=== PATIENT | female | born 1960 | race African-American/Black ===

== ENCOUNTER 2017-04-06 22:32 | Emergency (ER) | payer MEDICAID ==
[~2017-04-06] VITALS: Ht 165.1 cm; Wt 64.9 kg
[~2017-04-06 22:32] MED LIST: AMOXICILLIN500 MG ORAL; CILOXAN 0.3% O1 DROP BOTH EYES; CLINDAMYCIN HC300 MG ORAL; IBUPROFEN600 MG ORAL; IBUPROFEN600 MG PO; MACROBID100 MG ORAL; NKM; NORCO 5-325 TA1 EAC1 ORAL; PENICILLIN V P500 MG ORAL; ROBAXIN-750750 MG PO; VICODIN 5-5001 EACH PO
[2017-04-06 22:49] VITALS: BP 106/69
[2017-04-06] MEDS ORDERED: Ketorolac 60mg Inj IM ONE (23:15)
--- NOTE | 2017-04-06 23:15 | Emergency Room Report ---
History of Present Illness General Chief Complaint: Upper Extremity Injury Source: Patient Present Illness HPI Patient is a 56-year-old female presented after increased right wrist pain after fall. The patient reported falling 3 hours prior to arrival right side . She had prior history of wrist pain. Patient reported having some kind of a tear. She denies loss of consciousness or other locations of pain. Allergies: Coded Allergies: SULFA(SULFONAMIDE ANTIBIOTICS) (Verified Allergy, Mild, Hives, 03/29/12) Patient History Past Medical History: see triage record Reviewed Nursing Documentation: PMH: Agreed, PSxH: Agreed Nursing Documentation-PMH Past Medical History: No Stated History Hx Hypertension: No Hx Diabetes: No Hx Gastrointestinal Problems: No - Hysterectomy in 2001 Review of Systems All Other Systems: negative except mentioned in HPI Physical Exam Vital Signs Date Time Temp Pulse Resp B/P (MAP) Pulse Ox O2 Delivery O2 Flow Rate FiO2 04/06/17 22:39 97.9 64 16 106/69 98 Room Air General Appearance: well appearing, no apparent distress, alert, GCS 15 Head: normocephalic, atraumatic ENT: hearing grossly normal, normal voice Neck: full range of motion, supple Respiratory: no respiratory distress, speaking full sentences Cardiovascular #1: normal inspection, normal peripheral pulses, regular rate, rhythm Gastrointestinal: normal inspection Musculoskeletal: decreased range of mation - tenderness to right snuffbox, distal wrist swelling Neurologic: normal gait Psychiatric: mood/affect normal Skin: no rash Medical Decision Making Diagnostic Impression: Primary Impression: Distal radius fracture, right Additional Impression: Scaphoid fracture ER Course Patient presented for wrist pain. Differential diagnosis included fracture, dislocation, scapphoid fracture, sprain, ganglion cyst, septic joint , arthritis, abscess among others. Wrist Xray was ordered. X-ray imaging of the wrist 3 views interpreted by me showed nondisplaced fracture of the right wrist. The patient was noted to have pain consistent with scaphoid fracture. She was placed in a thumb spica splint. The patient is advised to follow up with primary care doctor in 1-2 days for orthopedic referral. Patient is advised to return if any worsening condition or if any changes in status that are concerning. This report is dictated with [employer] [email or web address] developer software which may occasionally lead to discrepancies related to use of this software. Last Vital Signs Date Time Temp Pulse Resp B/P (MAP) Pulse Ox O2 Delivery O2 Flow Rate FiO2 04/06/17 22:49 97.9 60 16 106/69 98 Room Air Status: improved Disposition: HOME, SELF-CARE Condition: Stable Scripts Ibuprofen* (MOTRIN*) 600 Mg Tablet 600 MG ORAL Q8H Y for For Pain, #30 TAB 0 Refills Prov: Humberto Downey 04/06/17 Hydrocodone Bit/Acetaminophen 5-325* (NORCO 5-325 TABLET*) 1 Each Tablet 1 TAB ORAL Q4H Y for For Pain, #30 TAB Prov: Humberto Downey 04/06/17 Humberto Downey Apr 06, 2017 23:15
[2017-04-06] MEDS ORDERED: NORCO 5-325 TA1 EAC1 ORAL (23:24)
[2017-04-06] MEDS ORDERED: IBUPROFEN600 MG ORAL (23:24)
--- NOTE | 2017-04-07 10:40 | Diagnostic Imaging Report ---
Clinical Indication:Pain status post fall Technique: 3 views of the right wrist Comparison: None Findings: There is a transverse fracture of the distal radius. This is nondisplaced.. No associated ulnar styloid fracture. There is very questionable lucency through the scaphoid waist seen on both the AP and oblique views, possibly artifactual but poorly could represent a nondisplaced fracture line. No dislocations. Joint spaces are preserved Impression: Positive for distal radial fracture Possible scaphoid waist fracture This agrees with the findings recorded by the ER physician in the electronic medical record
== END 2017-04-06 23:50 | disposition home or self-care (01) ==
LOC: EMR 23:25
DX: S52.591A Other fractures of lower end of right radius, initial encounter for closed fracture (principal); S62.001A Unspecified fracture of navicular [scaphoid] bone of right wrist, initial encounter for closed fracture; W19.XXXA Unspecified fall, initial encounter; Y92.9 Unspecified place or not applicable; Z88.2 Allergy status to sulfonamides
CPT/HCPCS: 96372; 99283

== ENCOUNTER 2017-12-28 08:35 | Emergency (ER) | payer MEDICAID ==
[~2017-12-28] VITALS: Ht 165.1 cm; Wt 64.4 kg
--- NOTE | 2017-12-28 09:13 | Emergency Room Report ---
History of Present Illness General Chief Complaint: Pain Source: Patient Present Illness HPI Patient presents to the emergency department today complaining of left rib pain. Patient states that she was trying to change bunkbed. And accidentally hurt her left side of the chest yesterday. She has had pain since then. The pain is worse with deep inspiration and palpation. She denies any other injuries. Denies any shortness of breath nausea vomiting diarrhea or chills. No other complaints are noted. Symptoms noted to be moderate.No other modifying factors. No other associated signs and symptoms. No other complaints were noted. Allergies: Coded Allergies: SULFA(SULFONAMIDE ANTIBIOTICS) (Verified Allergy, Mild, Hives, 03/29/12) Patient History Past Medical History: none Past Surgical History: none Pertinent Family History: none Social History: Denies: smoking, alcohol use, drug use Last Menstrual Period: hysterectomy 16 yrs ago Reviewed Nursing Documentation: PMH: Agreed; PSxH: Agreed Nursing Documentation-PMH Past Medical History: No History, Except For Hx Hypertension: No Hx Diabetes: No Hx Gastrointestinal Problems: No - Hysterectomy in 2001 Review of Systems All Other Systems: negative except mentioned in HPI Physical Exam Vital Signs Date Time Temp Pulse Resp B/P (MAP) Pulse Ox O2 Delivery O2 Flow Rate FiO2 12/28/17 08:42 98.3 61 18 108/63 96 Room Air 98.2 Sp02 EP Interpretation: reviewed, normal General Appearance: normal inspection, well appearing, no apparent distress, alert Head: atraumatic Eyes: bilateral eye normal inspection ENT: hearing grossly normal, normal voice Neck: full range of motion, supple Respiratory: normal inspection, lungs clear, normal breath sounds, no respiratory distress, no retraction, no wheezing, other - Tender left anterior chest Cardiovascular #1: regular rate, rhythm, no edema Gastrointestinal: normal inspection, normal bowel sounds, non tender, soft, no guarding, no hernia Genitourinary: no CVA tenderness Musculoskeletal: normal inspection, back normal, normal range of motion Neurologic: normal inspection, alert, responsive, speech normal Psychiatric: normal inspection, judgement/insight normal, mood/affect normal Skin: normal inspection, normal color, no rash Medical Decision Making Diagnostic Impression: Primary Impression: Rib contusion ER Course Patient presents emergency department today status post injury to left anterior chest wall. Differential considerations include fracture dislocation pneumothorax acute coronary syndrome just to name a few. Given patient's presentation, patient required a chest x-ray and rib x-rays both of which were normal. Patient's EKG was also normal. Patient was given Motrin with some improvement in pain. I felt the patient's symptoms are secondary to the trauma she experienced and will likely resolve. Patient is advised to have rest take pain medications as needed follow-up outpatient.Patient is advised to follow up with primary doctor in 2-3 days and return the emergency room for any worsening symptoms and as needed. EKG Diagnostic Results Rate: normal Rhythm: NSR ST Segments: no acute changes Rhythm Strip Diag. Results EP Interpretation: yes Rate: 56 Rhythm: NSR, no PVC's, no ectopy Chest X-Ray Diagnostic Results Chest X-Ray Diagnostic Results : Chest X-Ray Ordered: Yes # of Views/Limited/Complete: 1 View Indication: Chest Pain EP Interpretation: Yes Interpretation: no consolidation, no effusion, no pneumothorax, no acute cardiopulmonary disease Impression: No acute disease Electronically Signed by: Electronically signed by Brendon Corbett MD Other X-Ray Diagnostic Results Other X-Ray Diagnostic Results : X-Ray ordered: Right ribs # of Views/Limited Vs Complete: Complete Indication: Pain EP Interpretation: Yes Interpretation: no dislocation, no soft tissue swelling, no fractures Impression: No acute disease Electronically Signed by: Electronically signed by Brendon Corbett MD Last Vital Signs Date Time Temp Pulse Resp B/P (MAP) Pulse Ox O2 Delivery O2 Flow Rate FiO2 12/28/17 08:42 98.3 61 18 108/63 96 Room Air 98.2 Status: improved Disposition: HOME, SELF-CARE Condition: Stable Scripts Ibuprofen* (MOTRIN*) 600 Mg Tablet 600 MG ORAL Q8H PRN for For Pain, #20 TAB 0 Refills Prov: Brendon Corbett MD 12/28/17 Hydrocodone Bit/Acetaminophen 5-325* (NORCO 5-325*) 1 Each Tablet 1 TAB ORAL Q6H PRN for For Pain, #10 TAB 0 Refills Prov: Brendon Corbett MD 12/28/17 Referrals: NON PHYSICIAN (PCP) Brendon Corbett MD Dec 28, 2017 09:13
[2017-12-28] MEDS ORDERED: NORCO 5-325 TA1 EACH ORAL (09:56)
[2017-12-28] MEDS ORDERED: IBUPROFEN600 MG ORAL (09:56)
[2017-12-28 10:04] VITALS: BP 110/72
--- NOTE | 2017-12-28 10:27 | Diagnostic Imaging Report ---
Indication: Chest pain Comparison: None A single view chest radiograph was obtained. Findings: Cardiomediastinal appearance is within normal limits for age. The lungs are clear. Pulmonary vascularity is appropriate. The diaphragmatic contour is smooth and costophrenic angles are sharp. No pleural effusions are identified. The bones are unremarkable. Impression: No acute findings
--- NOTE | 2017-12-28 12:09 | Diagnostic Imaging Report ---
Indication: Trauma and left-sided chest pain. Comparison: None Findings: 4 views of the left chest wall was obtained for evaluation of the ribs. There is no acute fracture identified. There is no soft tissue swelling demonstrated. The lung is essentially clear. There is no pneumothorax. The costophrenic angle is sharp. Other osseous structures visualized are unremarkable. Impression: Negative left unilateral rib series
== END 2017-12-28 10:04 | disposition home or self-care (01) ==
LOC: EMR 08:57
DX: T14.8XXA Other injury of unspecified body region, initial encounter (principal); Y93.G3 Activity, cooking and baking; Y92.9 Unspecified place or not applicable
CPT/HCPCS: 71045; 93005; 99284

== ENCOUNTER 2019-01-23 08:27 | Emergency (ER) | payer MEDICAID ==
[~2019-01-23] VITALS: Ht 165.1 cm; Wt 68.0 kg
[~2019-01-23 08:27] MED LIST changes: +IBU800 MG PO; +NORCO 5-325 TA1 EACH ORAL
--- NOTE | 2019-01-23 08:45 | NUR ---
ED Nurse Note: Patient walked into ED using crutches. Complains of feeling dizzy since 0630 this morning. AxO x 4. She stated that she had a near syncopal episode but did not pass out. BP 118/80. Patient using crutches due to fracture to lower right foot. Patient on the endoscopy technican, bed in lowest position.
[2019-01-23 08:47] VITALS: BP 124/80
[2019-01-23] MEDS ORDERED: Meclizine 25mg tab ORAL ONE (09:00)
--- NOTE | 2019-01-23 09:07 | NUR ---
ED Nurse Note: Blood drawn and sent to lab.
[2019-01-23 09:24] LABS: ANION GAP 6 mmol/L (5-15); BLOOD UREA NITROGEN 9 mg/dL (7-18); CALCIUM 9.1 MG/DL (8.5-10.1); CARBON DIOXIDE 29 MMOL/L (21-32); CHLORIDE 107 MMOL/L (98-107); CREATININE 0.8 MG/DL (0.55-1.30); POTASSIUM 4.1 MMOL/L (3.5-5.1); SODIUM 142 MMOL/L (136-145)
[2019-01-23 09:28] LABS: ALANINE AMINOTRANSFERASE 26 U/L (12-78); ALBUMIN 3.6 G/DL (3.4-5.0); ALBUMIN/GLOBULIN RATIO 1.1 (1.0-2.7); ALKALINE PHOSPHATASE 49 U/L (46-116); ASPARTATE AMINO TRANSFERASE 24 U/L (15-37); BILIRUBIN,TOTAL 0.3 MG/DL (0.2-1.0)
--- NOTE | 2019-01-23 09:35 | Emergency Room Report ---
History of Present Illness General Chief Complaint: Dizziness Source: Patient Present Illness HPI 48-year-old female with no major medical problems, other than recent right foot injury comes to the ER with complaints of noticing dizziness that started this morning, worse with head movement, with associated nausea but no vomiting, denies any numbness, tingling, weakness, blurred vision, slurred speech, gait instability, leg pain, calf pain or swelling, cough, hemoptysis, chest pain, shortness of breath, near-syncope or syncope. She reports she is never had this symptom before and did not try medications for symptoms. The dizziness intensity is moderate, and intermittent in timing. Allergies: Coded Allergies: SULFA(SULFONAMIDE ANTIBIOTICS) (Verified Allergy, Mild, Hives, 03/29/12) Patient History Past Medical History: see triage record Last Menstrual Period: S/P HYSTERECTOMY 2001 Now: No Reviewed Nursing Documentation: PMH: Agreed; PSxH: Agreed Nursing Documentation-PMH Past Medical History: No Stated History Hx Hypertension: No Hx Diabetes: No Hx Gastrointestinal Problems: No - Hysterectomy in 2001 Review of Systems All Other Systems: negative except mentioned in HPI Physical Exam Vital Signs Date Time Temp Pulse Resp B/P (MAP) Pulse Ox O2 Delivery O2 Flow Rate FiO2 01/23/19 08:30 98.1 62 18 124/80 (95) 98 Room Air Sp02 EP Interpretation: reviewed, normal General Appearance: no apparent distress, alert, non-toxic Head: normocephalic Eyes: bilateral eye normal inspection, bilateral eye PERRL, bilateral eye EOMI ENT: normal ENT inspection, hearing grossly normal, normal pharynx, no angioedema, normal voice, moist mucus membranes Neck: normal inspection, full range of motion, supple, supple/symm/no masses Respiratory: chest non-tender, lungs clear, normal breath sounds, chest symmetrical, palpation of chest normal Cardiovascular #1: normal peripheral pulses, regular rate, rhythm Cardiovascular #2: 2+ radial (R), 2+ radial (L) Gastrointestinal: normal inspection, non tender, soft, no mass, no guarding, no rebound Rectal: deferred Genitourinary: normal inspection, no CVA tenderness Musculoskeletal: back normal, gait/station normal, normal range of motion, non- tender, no calf tenderness, Andrae's Sign negative, other - no calf swelling or tenderness, but R foot with wrap 2/2 foot injury Neurologic: alert, responsive, 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 EKG Diagnostic Results EKG Time: 09:03 EP Interpretation: no stemi Rate: normal Rhythm: NSR ST Segments: no acute changes ASA given to the pt in ED: Yes Rhythm Strip Diag. Results Rhythm Strip Time: 09:34 EP Interpretation: yes Rate: 60 Rhythm: NSR, no PVC's, no ectopy CT/MRI/US Diagnostic Results CT/MRI/US Diagnostic Results : Imaging Test Ordered: ct head noncontrast Reevaluation Time: 10:51 Last Vital Signs Date Time Temp Pulse Resp B/P (MAP) Pulse Ox O2 Delivery O2 Flow Rate FiO2 01/23/19 08:47 98.1 62 18 124/80 98 Room Air Status: improved Reevaluation Impression pt able to ambulate, will dc Disposition: HOME, SELF-CARE Condition: Stable Scripts No Active Prescriptions or Reported Meds Referrals: NON PHYSICIAN (PCP) SHIRA GARCIA M.D Jan 23, 2019 09:35
--- NOTE | 2019-01-23 10:00 | Diagnostic Imaging Report ---
CT HEAD WITHOUT CONTRAST INDICATION: Syncope, dizziness. Technique: Continuous helical CT scanning of the head was performed without intravenous contrast material. Axial and coronal 5 mm sections were generated. Radiation dose was minimized using automated exposure control DOSE: Total Dose Length Product - DLP 1269.[address] Dose Index - CTDIvol(s) 62.7 mGy. COMPARISON: None available FINDINGS: There is no acute intracranial hemorrhage, mass effect or cortical edema. The ventricles, cisterns and sulci are normal for age. Visualized mastoid air cells and paranasal sinuses are unremarkable. No focal lesions of the bony calvarium or soft tissues of the scalp are seen. IMPRESSION: No evidence of acute intracranial hemorrhage, mass effect or cortical edema. MRI may be obtained for more sensitive evaluation as clinically indicated. The CT scanner at [facility] is accredited by the [employer] and the scans are performed using protocols designed to limit radiation exposure to as low as reasonably achievable to attain images of sufficient resolution adequate for diagnostic evaluation.
[2019-01-23 10:03] LABS: BASOPHILS % (AUTO) 1.2 % (0.0-2.0); EOSINOPHILS % (AUTO) 1.7 % (0.0-3.0); HEMATOCRIT 34.9 % (37.0-47.0); HEMOGLOBIN 11.7 G/DL (12.0-16.0); LYMPHOCYTES % (AUTO) 44.9 % (20.0-45.0); MEAN CORPUSCULAR VOLUME 88 FL (80-99); MONOCYTES % (AUTO) 7.6 % (1.0-10.0); NEUTROPHILS % (AUTO) 44.6 % (45.0-75.0); PLATELET COUNT 260 K/UL (150-450); RED BLOOD COUNT 3.96 M/UL (4.20-5.40); WHITE BLOOD COUNT 4.4 K/UL (4.8-10.8)
--- NOTE | 2019-01-23 10:40 | NUR ---
ED Nurse Note: Notified Dr. Stringer of patient's continued abdominal and chest pain, awaiting further orders.
[2019-01-23] MEDS ORDERED: MECLIZINE HCL25 MG ORAL (10:52)
[2019-01-23] MEDS ORDERED: ZOFRAN4 M3 ORAL (10:52)
[2019-01-23 11:20] VITALS: BP 124/80
--- NOTE | 2019-01-23 11:20 | NUR ---
ER DISCHARGE NOTE: Patient is cleared to be discharged per ERMD, pt is aox4, on room air, with stable vital signs. pt was given dc and prescription instructions, pt was able to verbalize understanding, pt id band and iv site removed without complications. pt is able to ambulate with steady gait. pt took all belongings.
== END 2019-01-23 11:20 | disposition home or self-care (01) ==
LOC: EMR 09:25
DX: R42 Dizziness and giddiness (principal); Z88.2 Allergy status to sulfonamides; Z90.710 Acquired absence of both cervix and uterus
CPT/HCPCS: 36415; 70450; 80053; 84484; 85025; 93005; Z7502; 99284